=== PATIENT | male | born 2000 | race Caucasian/White ===

== ENCOUNTER 2022-04-11 11:41 | Emergency (ER) | payer OTHER ==
[~2022-04-11] VITALS: Ht 172.7 cm; Wt 61.4 kg
[~2022-04-11 11:41] MED LIST: ASMANEX TW110 MCG/AC IH; AZITHROMYC200 MG/5 M PO; DULCOLAX PO; MUCINEX 60600 MG/TAB; NASONEX0.05 MG/AC NS; NO HOME MEDICATIONS; NORDITROPI SC; RELION VEN0.09 MG/Ac IH; TYLENOL ELIX32 MG/ML PO; [UNRECOGNIZED DRUG - SUPPLY]
[2022-04-11 12:11] VITALS: BP 130/75; PULSE 99; TEMP 98.9
== END 2022-04-11 12:37 | disposition home or self-care (01) ==
LOC: COL.ER 11:41
DX: Z20.822 Contact with and (suspected) exposure to COVID-19 (principal); Z28.311 Partially vaccinated for COVID-19